=== PATIENT | female | born 1985 | race Caucasian/White ===

== ENCOUNTER → 2017-12-20 | Outpatient (CLI) | payer BC ==
[2014-08-31 19:20] VITALS: BP 114/79
[~2017-12-20] MED LIST: AMOX250T PO; ASPI1TAB55 PO; IBUP400T18 PO
--- NOTE | 2017-12-20 13:38 | RAD ---
Pelvic ultrasound HISTORY: Pelvic pain, hysterectomy, oophorectomy, appendectomy COMPARISON: None FINDINGS: Multiple transabdominal sonographic images of the pelvis are submitted. There has been hysterectomy and oophorectomy. No mass or free fluid is demonstrated. IMPRESSION: 1. There has been hysterectomy and oophorectomy, no mass or free fluid demonstrated. Electronically signed by: Riley Horta MD (12/20/2017 1:34 PM) [id number]
== END | disposition home or self-care (01) ==
LOC: US 12:37
PROVIDERS: ATTEND Nurse Practitioner Family
DX: R10.84 Generalized abdominal pain (principal); R10.2 Pelvic and perineal pain; J32.8 Other chronic sinusitis
CPT/HCPCS: 76856